=== PATIENT | female | born 1985 | race American Indian/Alaskan Native ===

== ENCOUNTER 2017-01-09 07:28 | Emergency (ER) | payer MEDICAID ==
[2017-01-09] MEDS ORDERED: PROVENTIL IH ONE (07:59)
[2017-01-09 08:11] LABS: Basophils % (Auto) 1.1 % (0.0-1.8); Eosinophils % (Auto) 0.9 % (0.0-4.3); Hemoglobin 14.2 gm/dl (10.1-14.3); Mean Corpuscular HGB Conc 34 % (30-34); Mean Corpuscular Hemoglobin 31 pg (28-32); Mean Corpuscular Volume 91 fl (79-97); Platelet Count 156 K/mm3 (140-440); Red Cell Distribution Width 13.7 % (13.2-15.2); White Blood Count 12.6 K/mm3 (4.5-11.0)
[2017-01-09 08:21] LABS: Anion Gap 17 mmol/L; BUN/Creatinine Ratio 18; Blood Urea Nitrogen 14 mg/dL (7-17); Calcium 9.5 mg/dL (8.4-10.2); Carbon Dioxide 26 mmol/L (22-30); Chloride 103.9 mmol/L (98-107); Glucose 99 mg/dL (65-100); Lipase 54 units/L (13-60); Potassium 4.4 mmol/L (3.6-5.0); Sodium 142 mmol/L (137-145)
[2017-01-09 08:53] LABS: Bilirubin,Urine NEG (Negative); Blood,Urine LG (Negative); Ketones,Urine TR mg/dL (Negative); Leukocyte Esterase,Urine MOD (Negative); Mucus,Urine 2+ /HPF; Nitrite,Urine NEG (Negative)
[2017-01-09] MEDS ORDERED: TORADOL IM ONE (12:28)
--- NOTE | 2017-01-09 12:29 | Emergency Department Report ---
ED General Adult HPI - General Chief complaint: Abdominal Pain Stated complaint: RIGHT SIDE ABDOMINAL PAIN, CHEST CONGESTION Time Seen by Provider: 01/09/17 12:21 Source: patient, RN notes reviewed Mode of arrival: Ambulatory Limitations: No Limitations - History of Present Illness Initial comments: This is a 31-year-old female. The patient was previously unknown to this provider. Her primary care doctor is in [place], she cannot recall the name of her primary care doctor. She reports a past medical history of asthma and ovarian cyst. She presents to the ER with a complaint of right lower quadrant pain. It is sharp. It is associated with her menstruation. She reports her pain today similar to prior episodes of symptomatic ovarian cyst. To me, the patient denies chest pain or shortness of breath. Patient endorses cough. There is no leg pain. There is no leg swelling. No DVT or pulmonary embolus risk factors. The pain increases with palpation and range of motion. Decreases with rest. -: Gradual Location: abdomen Radiation: non-radiation Quality: sharp Consistency: constant Improves with: rest Worsens with: movement Associated Symptoms: cough, weakness. denies: confusion, chest pain, diaphoresis, fever/chills, headaches, loss of appetite, malaise, syncope - Related Data Previous Rx's Medication Instructions Recorded Last Taken Type Cyclobenzaprine [Flexeril 10mg] 10 mg PO TID PRN #20 tablet 09/21/13 Unknown Rx Ibuprofen [Motrin] 800 mg PO Q8H #30 tablet 09/21/13 Unknown Rx traMADol [Ultram 50 MG tab] 50 mg PO Q6HR PRN #20 tablet 09/21/13 Unknown Rx Acetaminophen [Tylenol Arthritis] 650 mg PO Q6HR PRN #30 tablet.er 01/09/17 Unknown Rx Albuterol Sulfate [Proair 90 mcg IH Q4HR PRN #2 aer.pow.ba 01/09/17 Unknown Rx Respiclick] Ibuprofen [Motrin] 600 mg PO Q8H PRN #30 tablet 01/09/17 Unknown Rx Ondansetron [Zofran Odt] 4 mg PO Q8HR PRN #20 tab.rapdis 01/09/17 Unknown Rx Allergies Allergy/AdvReac Type Severity Reaction Status Date / Time No Known Allergies Allergy Unverified 09/21/13 09:30 ED Review of Systems ROS: Stated complaint: RIGHT SIDE ABDOMINAL PAIN, CHEST CONGESTION Other details as noted in HPI Constitutional: denies: fever Eyes: denies: vision change Respiratory: wheezing Cardiovascular: denies: chest pain Gastrointestinal: abdominal pain Genitourinary: discharge. denies: dysuria Musculoskeletal: denies: arthralgia Skin: denies: lesions Neurological: denies: abnormal gait Psychiatric: denies: anxiety ED Past Medical Hx - Past Medical History Hx Asthma: Yes - Surgical History Past Surgical History?: No - Social History Smoking Status: Current Every Day Smoker Substance Use Type: None - Medications Home Medications: Home Medications Medication Instructions Recorded Confirmed Last Taken Type Cyclobenzaprine [Flexeril 10mg] 10 mg PO TID PRN #20 tablet 09/21/13 Unknown Rx Ibuprofen [Motrin] 800 mg PO Q8H #30 tablet 09/21/13 Unknown Rx traMADol [Ultram 50 MG tab] 50 mg PO Q6HR PRN #20 tablet 09/21/13 Unknown Rx Acetaminophen [Tylenol Arthritis] 650 mg PO Q6HR PRN #30 tablet.er 01/09/17 Unknown Rx Albuterol Sulfate [Proair 90 mcg IH Q4HR PRN #2 aer.pow.ba 01/09/17 Unknown Rx Respiclick] Ibuprofen [Motrin] 600 mg PO Q8H PRN #30 tablet 01/09/17 Unknown Rx Ondansetron [Zofran Odt] 4 mg PO Q8HR PRN #20 tab.rapdis 01/09/17 Unknown Rx ED Physical Exam - General Limitations: No Limitations General appearance: alert, in no apparent distress - Head Head exam: Present: atraumatic, normocephalic - Eye Eye exam: Present: normal appearance, EOMI. Absent: nystagmus - ENT ENT exam: Present: normal exam, normal orophraynx, mucous membranes moist, normal external ear exam - Neck Neck exam: Present: normal inspection, full ROM. Absent: tenderness, meningismus - Respiratory Respiratory exam: Present: normal lung sounds bilaterally. Absent: respiratory distress, wheezes, rales, rhonchi, stridor, chest wall tenderness, accessory muscle use, decreased breath sounds, prolonged expiratory - Cardiovascular Cardiovascular Exam: Present: regular rate, normal rhythm, normal heart sounds. Absent: bradycardia, tachycardia, irregular rhythm, systolic murmur, diastolic murmur, rubs, gallop - GI/Abdominal GI/Abdominal exam: Present: soft, tenderness, normal bowel sounds, other (there is mild right lower quadrant tenderness to deep palpation. There is no rebound , guarding or peritoneal signs.). Absent: distended, guarding, rebound, rigid, pulsatile mass - External exam: Present: normal external exam Speculum exam: Present: normal speculum exam Bi-manual exam: Present: normal bi-manual exam, adnexal tenderness, other ( there is right-sided adnexal tenderness. Escorted via nurse Bernice Alexander). Absent: cervical motion tendernes, adnexal mass, uterine enlargement, uterine tenderness - Extremities Exam Extremities exam: Present: normal inspection, full ROM, normal capillary refill. Absent: pedal edema, joint swelling, calf tenderness - Back Exam Back exam: Present: normal inspection, full ROM. Absent: tenderness, CVA tenderness (R), CVA tenderness (L), muscle spasm, paraspinal tenderness, vertebral tenderness - Neurological Exam Neurological exam: Present: alert, oriented X3, normal gait, other (Extraocular movements intact. Tongue midline. No facial droop. Facial sensation intact to light touch in the V1, V2, V3 distribution bilaterally. 5 and 5 strength in 4 extremities.. Sensation is intact to light touch in 4 extremities.). Absent : motor sensory deficit - Psychiatric Psychiatric exam: Present: normal affect, normal mood - Skin Skin exam: Present: warm, dry, intact, normal color. Absent: rash ED Course Vital Signs 01/09/17 01/09/17 01/09/17 07:47 08:15 08:23 Temperature 98.6 F Pulse Rate 79 Pulse Rate [ 67 80 Anterior Bilateral Throughout] Respiratory 20 Rate Respiratory 20 20 Rate [Anterior Bilateral Throughout] Blood Pressure 110/73 O2 Sat by Pulse 97 Oximetry 01/09/17 01/09/17 01/09/17 12:10 12:16 12:30 Temperature Pulse Rate Pulse Rate [ Anterior Bilateral Throughout] Respiratory Rate Respiratory Rate [Anterior Bilateral Throughout] Blood Pressure 105/63 105/63 O2 Sat by Pulse 99 99 100 Oximetry 01/09/17 01/09/17 01/09/17 12:34 13:09 13:11 Temperature Pulse Rate Pulse Rate [ Anterior Bilateral Throughout] Respiratory 20 20 Rate Respiratory Rate [Anterior Bilateral Throughout] Blood Pressure 105/63 O2 Sat by Pulse 97 99 Oximetry 01/09/17 01/09/17 01/09/17 13:30 13:41 14:00 Temperature Pulse Rate Pulse Rate [ Anterior Bilateral Throughout] Respiratory 20 Rate Respiratory Rate [Anterior Bilateral Throughout] Blood Pressure 105/63 105/63 O2 Sat by Pulse 99 99 Oximetry - Reevaluation(s) Reevaluation #1: 01/09/17 14:33 Differential diagnosis, including but not limited to: Pelvic inflammatory disease, urinary tract infection, appendicitis, renal colic, colitis Assessment and plan: 31-year-old female with a primary complaint of abdominal pain. She has right-sided adnexal tenderness. There is no cervical motion tenderness. Her urinalysis appreciated, but she does not endorse urinary symptoms. Pelvic ultrasound was negative for torsion, did not suggest large ovarian cyst. Scan of the abdomen and pelvis has been performed, and the results are pending at this time. Triage nurse documentation is reviewed and appreciated, but to me, the patient denies chest pain. There are no pulmonary embolus or DVT risk factors. Given nondiagnostic ultrasound, CT scan of the abdomen and pelvis is pending at this time. Reevaluation #2: 01/09/17 14:38 Ultrasound unremarkable and within normal limits. Normal flow was demonstrated. CT scan of the abdomen and pelvis is negative for acute disease. The appendix is noted to be normal. Abdomen is soft on repeat examination. The patient feels slightly better. Patient will be discharged with pain medication, nausea medication, instructions to follow up with outpatient gynecology and primary care. Doubt pelvic inflammatory disease at this time, there is no cervical motion tenderness, and there is no cervical discharge. Reevaluation #3: 01/09/17 14:46 Patient requested empiric treatment for pelvic inflammatory disease. She is given ceftriaxone and azithromycin. Appropriate anticipatory guidance and counseling were provided. ED Medical Decision Making - Lab Data Result diagrams: 01/09/17 07:59 01/09/17 07:59 Vital Signs 01/09/17 01/09/17 01/09/17 07:47 08:15 08:23 Temperature 98.6 F Pulse Rate 79 Pulse Rate [ 67 80 Anterior Bilateral Throughout] Respiratory 20 Rate Respiratory 20 20 Rate [Anterior Bilateral Throughout] Blood Pressure 110/73 O2 Sat by Pulse 97 Oximetry 01/09/17 01/09/17 01/09/17 12:10 12:16 12:30 Temperature Pulse Rate Pulse Rate [ Anterior Bilateral Throughout] Respiratory Rate Respiratory Rate [Anterior Bilateral Throughout] Blood Pressure 105/63 105/63 O2 Sat by Pulse 99 99 100 Oximetry 01/09/17 01/09/17 01/09/17 12:34 13:09 13:11 Temperature Pulse Rate Pulse Rate [ Anterior Bilateral Throughout] Respiratory 20 20 Rate Respiratory Rate [Anterior Bilateral Throughout] Blood Pressure 105/63 O2 Sat by Pulse 97 99 Oximetry 01/09/17 01/09/17 01/09/17 13:30 13:41 14:00 Temperature Pulse Rate Pulse Rate [ Anterior Bilateral Throughout] Respiratory 20 Rate Respiratory Rate [Anterior Bilateral Throughout] Blood Pressure 105/63 105/63 O2 Sat by Pulse 99 99 Oximetry Lab Results 01/09/17 01/09/17 01/09/17 Range/Units 07:59 07:59 08:24 WBC 12.6 H (4.5-11.0) K/mm3 RBC 4.60 (3.65-5.03) M/mm3 Hgb 14.2 (10.1-14.3) gm/dl Hct 42.0 (30.3-42.9) % MCV 91 (79-97) fl MCH 31 (28-32) pg MCHC 34 (30-34) % RDW 13.7 (13.2-15.2) % Plt Count 156 (140-440) K/mm3 Lymph % (Auto) 18.7 (13.4-35.0) % [place] % (Auto) 5.0 (0.0-7.3) % Eos % (Auto) 0.9 (0.0-4.3) % Baso % (Auto) 1.1 (0.0-1.8) % Lymph # 2.4 (1.2-5.4) K/mm3 [place] # 0.6 (0.0-0.8) K/mm3 Eos # 0.1 (0.0-0.4) K/mm3 Baso # 0.1 (0.0-0.1) K/mm3 Seg Neutrophils % 74.3 H (40.0-70.0) % Seg Neutrophils # 9.4 H (1.8-7.7) K/mm3 Sodium 142 (137-145) mmol/L Potassium 4.4 (3.6-5.0) mmol/L Chloride 103.9 (98-107) mmol/L Carbon Dioxide 26 (22-30) mmol/L Anion Gap 17 mmol/L BUN 14 (7-17) mg/dL Creatinine 0.8 (0.7-1.2) mg/dL Estimated GFR > 60 ml/min BUN/Creatinine Ratio 18 % Glucose 99 (65-100) mg/dL Calcium 9.5 (8.4-10.2) mg/dL Lipase 54 (13-60) units/L Urine Color Yellow (Yellow) Urine Turbidity Clear (Clear) Urine pH 7.0 (5.0-7.0) Ur Specific [place] 1.027 (1.003-1.030) Urine Protein 30 mg/dl (Negative) mg/dL Urine Glucose (UA) Neg (Negative) mg/dL Urine Ketones Tr (Negative) mg/dL Urine Blood Lg (Negative) Urine Nitrite Neg (Negative) Urine Bilirubin Neg (Negative) Urine Urobilinogen 4.0 (<2.0) mg/dL Ur Leukocyte Esterase Mod (Negative) Urine WBC (Auto) 18.0 H (0.0-6.0) /HPF Urine RBC (Auto) 168.0 (0.0-6.0) /HPF U Epithel Cells (Auto) 5.0 (0-13.0) /HPF Urine Mucus 2+ /HPF Urine HCG, Qual Negative (Negative) - EKG Data -: EKG Interpreted by Me - EKG Data 01/09/17 14:36 Pneumo sinus, 80 beats per minute, normal intervals, normal axis, not morphologically consistent with ST elevation myocardial infarction - Radiology Data Radiology results: report reviewed, image reviewed interpreted by me: Patient's pulmonary examination is unremarkable she is saturating well with no wheezing and my exam. Therefore do not feel patient requires an x-ray. Critical care attestation.: If time is entered above; I have spent that time in minutes in the direct care of this critically ill patient, excluding procedure time. ED Disposition Clinical Impression: Lower abdominal pain Disposition: DC-01 TO HOME OR SELFCARE Is pt being admited?: No Does the pt Need Aspirin: No Condition: Stable Instructions: Abdominal Pain (ED) Additional Instructions: Cultures were sent today. Results will be available in the next 3-5 days. Have a primary care doctor contact the medical records department to obtain culture results. Follow up with the primary care doctor or girls tennis coach within the next 3-5 days. Return to the ER right away with new pain, worsening pain, migration of pain, fevers, chills, lethargy, irritability, projectile vomiting, change in mental status, inability to tolerate liquid feeds, new, worsening or different symptoms. We typically treat young females with unexplained lower abdominal pain to protect your ability to have children safely in the future. Cultures were sent today, and results will be available next 3-5 days. Please have your primary care doctor call the medical records department to obtain your culture results. Take the antibiotic therapy as directed. Take the nausea medication and pain medication as directed. I recommend outpatient testing for sexually transmitted diseases, including hepatitis, syphilis and HIV. I also recommend that you abstain from sexual activity until you have completed her antibiotic therapy, a physician states that it is safe for you to resume sexual activity, and any partners that you have been sexually active with have been tested/ treated/evaluated for sexual transmitted diseases. Please follow-up with physician within 3-5 days. I recommend that you return to the ER right away with worsening pain, migration of pain, intractable nausea/vomiting, inability tolerate liquid feeds. Prescriptions: Acetaminophen [Tylenol Arthritis] 650 mg PO Q6HR PRN #30 tablet.er PRN Reason: Pain Albuterol Sulfate [Proair Respiclick] 90 mcg IH Q4HR PRN #2 aer.pow.ba PRN Reason: Wheezing Ibuprofen [Motrin] 600 mg PO Q8H PRN #30 tablet PRN Reason: Pain Ondansetron [Zofran Odt] 4 mg PO Q8HR PRN #20 tab.rapdis PRN Reason: Nausea Referrals: PRIMARY CARE, [Primary Care Provider] - 3-5 Days TAMIKO VELAZQUEZ MD [Staff Physician] - 3-5 Days [facility] [Provider Group] - 3-5 Days [facility] [Provider Group] - 3-5 Days [facility] [Provider Group] - 3-5 Days
--- NOTE | 2017-01-09 13:27 | Ultrasound Report ---
ULTRASOUND PELVIS DUPLEX DOPPLER COMPLETE - TRANSABDOMINAL AND TRANSVAGINAL: INDICATION: Pelvic pain. COMPARISON: None similar. FINDINGS: Transabdominal and transvaginal pelvic sonography with spectral Doppler performed in this patient with LMP of 11/30/2016 and demonstrates a homogenous, anteverted 8.4 x 4.8 x 5.1 cm uterus with endometrial thickness of 0.5 cm, endovaginal image 8. No significant free fluid. Right ovary is 2.6 x 2 x 1.9 cm while the left ovary is 2.9 x 1.8 x 2.3 cm. Small, physiologic bilateral ovarian follicles. Preserved bilateral ovarian blood flow. CONCLUSION: Physiologic pelvic sonogram, as described. Thank you for the opportunity to participate in this patient's care.
[2017-01-09] MEDS ORDERED: NACL 0.9% 500 ML 500 ML IV ONE (13:42)
[2017-01-09] MEDS ORDERED: NACL ONE (14:01)
--- NOTE | 2017-01-09 14:31 | Cat Scan Report ---
CT scan of abdomen and pelvis with IV contrast: History: Right lower quadrant pain. Findings: Normal lung bases. No pleural or pericardial effusion. Normal adrenals kidneys and bladder. No free intraperitoneal fluid or. No evidence of adenopathy. Gaseous colon with moderate volume stool in colon. No evidence of appendicitis or diverticulitis. Diverticulosis sigmoid colon. Impression: Diverticulosis sigmoid colon.
[2017-01-09] MEDS ORDERED: ZITHROMAX PO ONE (14:45)
[2017-01-09] MEDS ORDERED: ROCEPHIN 250 MG in NACL 0.9% 50 ML IV ONE (14:45)
[2017-01-09] MEDS ORDERED: XYLOCAINE 1% MPF 5 mL INFILTRATI ONE (14:45)
[2017-01-09 15:29] VITALS: BP 110/64
== END 2017-01-09 15:28 | disposition home or self-care (01) ==
LOC: ED 07:28
DX: R10.30 Lower abdominal pain, unspecified (principal); F17.200 Nicotine dependence, unspecified, uncomplicated
CPT/HCPCS: 36415; 74177; 76830; 80048; 81001; 81025; 83690; 85025; 87210; 87591; 93005; 93010; 93975; 94640; 96365; 96372; 99285; J0696; J1885; J7040; Q9967